=== PATIENT | male | born 1965 | race Caucasian/White ===

== ENCOUNTER 2019-01-06 07:43 | Day surgery (SDC) | payer OTHER ==
[2019-01-06] MEDS ORDERED: ceFAZolin 2 GM in Premix Bag 1 BAG IV ONE (08:00)
[2019-01-06] MEDS ORDERED: Lactated Ringers 1,000 ML IV SCH (08:00)
[2019-01-06] MEDS ORDERED: Sodium Chloride 0.9% 10 ML Syringe FLUSH PRN (08:00)
[2019-01-06 08:17] VITALS: BP 144/89; PULSE 61
== END 2019-01-06 09:11 | disposition home or self-care (01) ==
LOC: FB.SDS 07:43
PROVIDERS: ATTEND Orthopaedic Surgery
DX: M25.512 Pain in left shoulder (principal); Z53.09 Procedure and treatment not carried out because of other contraindication
CPT/HCPCS: J0690; J7120

== ENCOUNTER 2019-01-13 07:10 | Day surgery (SDC) | payer OTHER ==
[2019-01-13] MEDS ORDERED: Succinylcholine 200 MG/10 ML MDV IV ONE (07:11)
[2019-01-13] MEDS ORDERED: Lactated Ringers 1,000 ML IV ONE (07:11)
[2019-01-13] MEDS ORDERED: Rocuronium 50 MG/5 ML Vial IV ONE (07:11)
[2019-01-13] MEDS ORDERED: Labetalol 100 MG/20 ML MDV IV ONE (07:11)
[2019-01-13] MEDS ORDERED: fentaNYL 100 MCG/2 ML SDV IV ONE (07:11)
[2019-01-13] MEDS ORDERED: Neostigmine Methylsulfate 10 MG/10 ML MDV IVPUSH ONE (07:11)
[2019-01-13] MEDS ORDERED: Glycopyrrolate 0.2 MG/ML 5 ML MDV IV ONE (07:11)
[2019-01-13] MEDS ORDERED: Propofol 200 MG/20 ML SDV IV ONE (07:11)
[2019-01-13] MEDS ORDERED: Ondansetron 4 MG/2 ML SDV IVPUSH ONE (07:11)
[2019-01-13] MEDS ORDERED: Ketorolac 30 MG/ML SDV IVPUSH ONE ×2 (07:11→12:19)
[2019-01-13] MEDS ORDERED: Midazolam 1 MG/ML 2 ML SDV IV ONE (07:11)
[2019-01-13] MEDS ORDERED: Dexamethasone 4 MG/ML 5 ML MDV IVPUSH ONE (07:11)
[2019-01-13] MEDS ORDERED: Phenylephrine 1% 10 MG/ML SDV IV ONE (07:11)
[2019-01-13] MEDS ORDERED: Sodium Chloride 0.9% 10 ML Syringe FLUSH PRN (07:30)
[2019-01-13] MEDS ORDERED: Lactated Ringers 1,000 ML IV SCH (07:30)
[2019-01-13] MEDS ORDERED: ceFAZolin 2 GM in Premix Bag 1 BAG IV ONE (08:00)
[2019-01-13] MEDS ORDERED: Lidocaine 1% with EPINEPHrine 1:100,000 20 ML MDV INJECT ONE (10:07)
--- NOTE | 2019-01-13 11:29 | PCM.OPNOTE ---
- General Post-Op/Procedure Note Date of Surgery/Procedure: 01/13/19 Operative Procedure(s): left shoulder arthroscopy, subacromial decompression, distal clavicle resection Pre Op Diagnosis: left shoulder impingement, acromioclavicular arthrosis Post-Op Diagnosis: Same Anesthesia Technique: General ET Tube Primary Surgeon: Mathew Holland Anesthesia Provider: Ann Martin EBL in mLs: 25 Complications: None Condition: Good
[2019-01-13] MEDS ORDERED: Acetaminophen/oxyCODONE 325-5 MG Tab PO ONE (12:20)
--- NOTE | 2019-01-13 13:34 | OR ---
DATE OF OPERATION: 01/13/2019 SURGEON: Mathew Holland DO PREOPERATIVE DIAGNOSES: Left shoulder impingement and acromioclavicular arthrosis. POSTOPERATIVE DIAGNOSES: Left shoulder impingement and acromioclavicular arthrosis. PROCEDURES: 1. Left shoulder arthroscopy. 2. Subacromial decompression. 3. Distal clavicle resection. ANESTHESIA: Ann Genereux, [employer]. General endotracheal intubation. FLUID: Lactated Ringer solution. ESTIMATED BLOOD LOSS: 25 mL. COMPLICATIONS: None. SPECIMEN: None. DISCHARGE DISPOSITION: Stable to PACU. HISTORY AND INDICATION FOR THE PROCEDURE: The patient is well known to me. I operated on his hand previously. He was seen preoperatively in the clinic. He already had an MRI at that time showing rotator cuff tendinosis as well as acromioclavicular arthrosis and type 2 acromion. Preoperative imaging on the MRI confirmed the above-mentioned diagnosis. Risks and benefits of the procedure were explained to the patient. Informed consent was obtained. DETAILS OF PROCEDURE: The patient was seen preoperatively by myself and the Anesthesia staff in the preoperative holding area where the operative site was marked. He was brought to the operative suite by the Anesthesia staff, where general anesthesia was administered. He was placed into a beach chair positioner. All extremities were found to be well padded. The bed was flexed. His neck was in appropriate position in gentle flexion. The left upper extremity was then prepped and draped in a sterile manner. Time-out was called after the correct patient, correct procedure, the correct site, and the antibiotics had been within appropriate period of time. A posterior portal was then made. We tried to enter the joint several times, but could not, but give that we are not there for anything in the joint, we elected to go into the subacromial space. At that time, it was evident he had significant bursitis. I made my lateral portal and then performed an extensive bursectomy. The acromion was identified and the bur and cautery unit were used to clean all the soft tissue off the acromion. I then used a 5.5 bur to remove the inferior portion of the acromion. The procedure took quite a long time because the patient did bleed quite a bit and so we had to go back and forth with our cautery and increase our fluid pressure. I then used the instruments to remove the soft tissue along the distal clavicle, which did show arthrosis present. I then cleaned it off more with the cautery unit and then performed a distal clavicle extension through an anterior portal after placing the needle to ensure proper placement. After this was accomplished, we then removed all of the instruments and injected 20 mL 1% Marcaine in the subacromial space as well as at the portal sites and then closed with interrupted [id number] 3-0 nylon sutures followed by Betadine-soaked Adaptic, sterile sponges, an ABD, and Medipore tape. The patient was then allowed to awaken from general anesthesia and taken to the PACU in stable condition. /[id number] CLAIRE/LAURA
[2019-01-13] MEDS ORDERED: Labetalol 100 MG/20 ML MDV IVPUSH ONE (13:44)
[2019-01-13 14:42] VITALS: BP 167/88; PULSE 82
== END 2019-01-13 14:46 | disposition home or self-care (01) ==
LOC: FB.SDS 07:10
PROVIDERS: ATTEND Orthopaedic Surgery
DX: M19.012 Primary osteoarthritis, left shoulder (principal); M75.42 Impingement syndrome of left shoulder; M75.52 Bursitis of left shoulder; I48.91 Unspecified atrial fibrillation; I47.1 Supraventricular tachycardia; E78.5 Hyperlipidemia, unspecified; E66.9 Obesity, unspecified; G47.33 Obstructive sleep apnea (adult) (pediatric); M10.9 Gout, unspecified; M50.10 Cervical disc disorder with radiculopathy, unspecified cervical region; Z68.34 Body mass index [BMI] 34.0-34.9, adult; Z99.89 Dependence on other enabling machines and devices; Z87.891 Personal history of nicotine dependence; Z91.09 Other allergy status, other than to drugs and biological substances; Z79.82 Long term (current) use of aspirin; Z79.899 Other long term (current) drug therapy
CPT/HCPCS: 29824; 29826; A9270; J0330; J0690; J1100; J1885; J2001; J2250; J2405; J2704; J2710; J3010; J3490; J7120; J2370